=== PATIENT | female | born 1995 | race Caucasian/White ===

== ENCOUNTER 2020-10-24 15:04 | Emergency (ER) | payer MEDICAID, OTHER ==
[~2020-10-24] VITALS: Ht 160 cm; Wt 69.9 kg
--- NOTE | 2020-10-24 15:35 | NUR ---
Pt ambulated to the restroom. Sean TSE at bedside. Pt refused any pain medication at this time.
[2020-10-24 15:44] LABS: MICROSCOPIC NOT IND
[2020-10-24 16:06] LABS: ALBUMIN 4.1 g/dL (3.4-5.0); ANION GAP 6 mmol/L (5-15); CALCIUM 9.1 mg/dL (8.5-10.1); CHLORIDE 110 mmol/L (98-107); CREATININE 0.78 mg/dL (0.55-1.02)
--- NOTE | 2020-10-24 16:44 | NUR ---
Pt to US
[2020-10-24 16:55] LABS: BASOPHILS % (AUTO) 0 % (0-1); EOSINOPHILS % (AUTO) 1 % (1-7); LYMPHOCYTES % (AUTO) 17 % (22-44); MEAN CORPUSCULAR HEMOGLOBIN 32.9 pg (27.0-34.8); MEAN CORPUSCULAR HGB CONC 34.7 g/dL (32.4-35.8); MEAN PLATELET VOLUME 9.9 fL (7.4-10.4); MONOCYTES % (AUTO) 5 % (2-9); NEUTROPHILS % (AUTO) 77 % (42-75); PLATELET COUNT 222 x10^3/uL (130-400); RED BLOOD COUNT 4.41 x10^6/uL (3.82-5.3); RED CELL DISTRIBUTION WIDTH 12.3 % (9.6-15.2)
[2020-10-24 16:57] LABS: MD NO
[2020-10-24] MEDS ORDERED: IBUPROFEN 600 MG TABLET ONE (17:22)
[2020-10-24] MEDS ORDERED: IBUPROFEN 200 MG TABLET ONE (17:25)
--- NOTE | 2020-10-24 17:29 | NUR ---
Pt complaining of increasing pain 7/10 in her lower abdomen. Orders received for Ibuprofen and given.
[2020-10-24] MEDS ORDERED: IBUPROFEN 200 MG TABLET PO ONE (17:30)
[2020-10-24] MEDS ORDERED: HYDROcodone/APAP 5/325 TABLET ONE (17:38)
[2020-10-24 17:42] VITALS: BP 96/68
--- NOTE | 2020-10-24 17:53 | NUR ---
Pt discharged home. Discharge instructions read and given to pt. Pt verbalizes understanding.
[2020-10-24] MEDS ORDERED: HYDROcodone/APAP 5/325 TABLET PO ONE (18:00)
== END 2020-10-24 17:57 | disposition home or self-care (01) ==
LOC: ED 16:33
DX: N83.292 Other ovarian cyst, left side (principal)
CPT/HCPCS: 36415; 76830; 80048; 81003; 82040; 84703; 85025; 99284